=== PATIENT | female | born 1985 | race Two or more races ===

== ENCOUNTER 2020-09-10 15:42 | Outpatient (CLI) | payer OTHER ==
[~2020-09-10] VITALS: Ht 154.9 cm; Wt 95.0 kg
[2020-09-10] MEDS ORDERED: FERR-28 PO (16:11)
[2020-09-10] MEDS ORDERED: [UNRECOGNIZED DRUG - CODE] PO (16:11)
[2020-09-10] MEDS ORDERED: CALC200T3 PO (16:11)
[2020-09-10] MEDS ORDERED: PREN1TAB10 PO (16:11)
[2020-09-10] MEDS ORDERED: ASPI-515 PO (16:11)
[2020-09-10 16:48] VITALS: BP 109/67
== END 2020-09-10 18:27 | disposition home or self-care (01) ==
LOC: LDOP 15:42
PROVIDERS: ATTEND Obstetrics & Gynecology
DX: O26.893 Other specified pregnancy related conditions, third trimester (principal); R10.9 Unspecified abdominal pain; Z3A.33 33 weeks gestation of pregnancy
CPT/HCPCS: 59025; 76815